=== PATIENT | female | born 1990 | race African-American/Black ===

== ENCOUNTER 2016-11-16 03:16 | Emergency (ER) | payer SELFPAY ==
[~2016-11-16] VITALS: Ht 167.6 cm; Wt 89.0 kg
[2016-11-16] MEDS ORDERED: KETOROLAC 60MG/2ML VIAL IM ONE (07:15)
[2016-11-16] MEDS ORDERED: CYCLOBENZAPRINE 10MG TABLET PO ONE (07:15)
[2016-11-16 07:37] VITALS: BP 119/79
[2016-11-16 07:52] LABS: GLUCOSE URINE NEGATIVE (NEGATIVE); KETONES URINE NEGATIVE (NEGATIVE); LEUKOCYTE ESTERASE URINE NEGATIVE (NEGATIVE); NITRITE URINE NEGATIVE (NEGATIVE); OCCULT BLOOD URINE NEGATIVE (NEGATIVE); PH URINE 6.5 (4.5-8.0); PROTEIN URINE TRACE (NEGATIVE); SPECIFIC GRAVITY URINE 1.031 (1.005-1.030); UROBILINOGEN URINE 0.2 E.U./dL (0.2-1.0)
[2016-11-16 07:53] LABS: CLARITY URINE SL HAZY (CLEAR); COLOR URINE YELLOW (YELLOW)
[2016-11-16 08:23] LABS: BACTERIA URINE TRACE; RBC URINE 0-2 /hpf (0-2); SQUAMOUS EPITHELIAL CELL URINE 2+ /lpf (RARE/1+)
== END 2016-11-16 08:27 | disposition home or self-care (01) ==
LOC: ER 08:12
DX: M54.5 Low back pain (principal); G89.29 Other chronic pain; Z88.0 Allergy status to penicillin
CPT/HCPCS: 81001; 81025; 96372; 99283; J1885

== ENCOUNTER 2018-02-08 09:32 | Emergency (ER) | payer MEDICAID ==
[~2018-02-08] VITALS: Ht 167.6 cm; Wt 100.0 kg
[2018-02-08] MEDS ORDERED: ONDANSETRON HCL 4MG/2ML VIAL IV STA (10:16)
[2018-02-08] MEDS ORDERED: VISCOUS LIDOCAINE 2% 15 ML UDC PO STA (10:16)
[2018-02-08] MEDS ORDERED: MAGNESIUM/ALUMINUM HYDROXIDE/SIMETHICONE 30ML UDC PO STA (10:16)
[2018-02-08] MEDS ORDERED: FAMOTIDINE 20MG/2ML VIAL IV ONE (10:30)
[2018-02-08] MEDS ORDERED: DICYCLOMINE HCL 10MG CAPSULE PO ONE (10:30)
[2018-02-08 10:48] LABS: HEMATOCRIT. 33.9 % (36.0-48.0); HEMOGLOBIN. 11.3 g/dL (12.0-16.0); MEAN CORPUSCULAR VOLUME 95.7 fL (81.0-99.0); MEAN PLATELET VOLUME 8.5 fl (7.4-10.4); PLATELET 215 x1000/uL (130-400); RED BLOOD CELL COUNT 3.54 mill/uL (4.2-5.4); RED CELL DISTRIBUTION WIDTH 12.7 % (11.6-14.6)
[2018-02-08 10:51] LABS: CHLORIDE 106 mEq/L (98-107)
[2018-02-08 10:56] LABS: ETHANOL BLOOD < 10 mg/dL
[2018-02-08 11:10] LABS: PLATELET ESTIMATE NORMAL
[2018-02-08 12:03] LABS: *AMPHETAMINES SCREEN URINE NEGATIVE (NEGATIVE); *BARBITURATES SCREEN URINE NEGATIVE (NEGATIVE); *BENZODIAZEPINES SCREEN URINE NEGATIVE (NEGATIVE); *COCAINE SCREEN URINE NEGATIVE (NEGATIVE); METHADONE URINE SCREEN NEGATIVE (NEGATIVE); OPIATES URINE SCREEN NEGATIVE (NEGATIVE)
[2018-02-08 12:04] LABS: PHENCYCLIDINE URINE SCREEN NEGATIVE (NEGATIVE)
[2018-02-08 12:07] LABS: CANNABINOID URINE SCREEN PRESUMTIVE POSITIVE (NEGATIVE)
[2018-02-08] MEDS ORDERED: MORPHINE SULFATE 4 MG/ML CPJ (NOT FOR IM USE) IV ONE (12:45)
[2018-02-08] MEDS ORDERED: IOHEXOL-300 100 ML BOTTLE ONE (13:41)
[2018-02-08 14:37] VITALS: BP 130/97
[2018-02-11 04:14] LABS: CHLAMYDIA TRACHOMATIS NAA Negative (Negative); NEISSERIA GONORRHOEAE NAA Positive (Negative)
== END 2018-02-08 14:37 | disposition home or self-care (01) ==
LOC: ER 09:32
DX: K29.70 Gastritis, unspecified, without bleeding (principal); D64.9 Anemia, unspecified; D72.829 Elevated white blood cell count, unspecified; F12.10 Cannabis abuse, uncomplicated; Z88.0 Allergy status to penicillin
CPT/HCPCS: 36415; 74177; 80053; 80305; 81025; 83690; 85025; 87491; 87591; 96374; 96375; 99285; G0482; J2270; J2405; J3490; Q9967